=== PATIENT | male | born 1955 | race African-American/Black ===

== ENCOUNTER 2017-06-05 11:10 | Inpatient (IN) | payer OTHER ==
[~2017-06-05] VITALS: Ht 185.4 cm; Wt 117.0 kg
[2017-06-05] MEDS ORDERED: MORPHINE SULFATE 4 MG/ML, 1ML ONE (11:21)
[2017-06-05] MEDS ORDERED: ONDANSETRON 2MG/ML, 2ML ONE (11:21)
[2017-06-05] MEDS ORDERED: SODIUM CHLORIDE FLUSH 10ML SYR IVF ONE (11:30)
[2017-06-05] MEDS ORDERED: MORPHINE SULFATE 4 MG/ML, 1ML IVPush PRN (11:30)
[2017-06-05] MEDS ORDERED: SODIUM CHLORIDE 0.9% 1,000ML IVBOLUS ONE (11:30)
[2017-06-05] MEDS ORDERED: ONDANSETRON 2MG/ML, 2ML IVPush ONE (11:30)
[2017-06-05] MEDS ORDERED: ROSU20TA PO (12:10)
[2017-06-05] MEDS ORDERED: ASPI-621 PO (12:10)
[2017-06-05] MEDS ORDERED: VALS1TAB19 PO (12:10)
[2017-06-05] MEDS ORDERED: CYAN100063 PO (12:10)
[2017-06-05] MEDS ORDERED: AMLO2.5T2 PO (12:10)
[2017-06-05] MEDS ORDERED: CHOL500014 PO (12:10)
[2017-06-05] MEDS ORDERED: ALLO100T30 PO (12:10)
[2017-06-05 12:19] LABS: ASPARTATE AMINO TRANSFERASE 19 U/L (15-37); BLOOD UREA NITROGEN 21 mg/dL (7-18)
[2017-06-05 12:27] LABS: IS PT STATUS REG ER OR PRE ER? YES
[2017-06-05] MEDS ORDERED: LORazepam 1MG TABLET ONE (13:17)
[2017-06-05] MEDS ORDERED: HYDROcodone/APAP 5/325 TABLET PO PRN (13:30)
[2017-06-05] MEDS ORDERED: LORazepam 1MG TABLET PO PRN (13:30)
[2017-06-05] MEDS ORDERED: BISACODYL 10 MG SUPP PR PRN (13:30)
[2017-06-05] MEDS ORDERED: ONDANSETRON 2MG/ML, 2ML IVPush PRN (13:30)
[2017-06-05] MEDS ORDERED: POLYETHYLENE GLYCOL 17 GM PACKET PO PRN (13:30)
[2017-06-05] MEDS ORDERED: DOCUSATE 100 MG CAPSULE PO PRN (13:30)
[2017-06-05] MEDS ORDERED: LABETALOL 5MG/ML, 20ML IVPush PRN (13:30)
[2017-06-05] MEDS ORDERED: HYDROmorphone 2 MG/ML, 1ML IVPush PRN (13:30)
[2017-06-05] MEDS ORDERED: ACETAMINOPHEN 325 MG TABLET PO PRN (13:30)
[2017-06-05] MEDS ORDERED: PHARMACY MAY ADJ FOR RENAL FX MC PRN ×2 (13:30→14:00)
[2017-06-05 14:13] LABS: IS PT STATUS REG ER OR PRE ER? YES
[2017-06-05] MEDS: SODIUM CHLORIDE 0.9% 1,000 ML IV SCH ×2 (14:38→22:39)
[2017-06-05] MEDS ORDERED: ENOXAPARIN 40 MG/0.4 ML SQ SCH (15:00)
[2017-06-05] MEDS: METOPROLOL TARTRATE 25 MG TABLET PO SCH (17:18)
[2017-06-05 19:33] VITALS: BP 113/76
[2017-06-05 19:42] LABS: IS PT STATUS REG ER OR PRE ER? NO
[2017-06-05] MEDS ORDERED: (Rosuvastatin Calcium** (Crestor**) 20 MG) PO SCH (21:00)
[2017-06-06 00:56] VITALS: BP 96/61
[2017-06-06 05:08] LABS: ASPARTATE AMINO TRANSFERASE 17 U/L (15-37); BLOOD UREA NITROGEN 17 mg/dL (7-18)
[2017-06-06 05:54] VITALS: BP 110/75
[2017-06-06] MEDS: SODIUM CHLORIDE 0.9% 1,000 ML IV SCH ×2 (05:55→12:50)
[2017-06-06] MEDS: METOPROLOL TARTRATE 25 MG TABLET PO SCH (05:56)
[2017-06-06 08:04] VITALS: BP 117/80
[2017-06-06] MEDS ORDERED: ALLOPURINOL 300 MG TABLET PO SCH (09:00)
[2017-06-06] MEDS ORDERED: HYDROCHLOROTHIAZIDE PO SCH (09:00)
[2017-06-06] MEDS ORDERED: VALSARTAN PO SCH (09:00)
[2017-06-06] MEDS ORDERED: ASPIRIN 81 MG TABLET EC PO SCH (09:00)
[2017-06-06] MEDS ORDERED: CYANOCOBALAMIN 3000 MCG PO SCH (09:00)
[2017-06-06] MEDS ORDERED: CHOLECALCIFEROL 5000 UNIT PO SCH (09:00)
[2017-06-06] MEDS ORDERED: AMLODIPINE 2.5 MG TABLET PO SCH (09:00)
[2017-06-06] MEDS ORDERED: ALPR0.5T PO (12:57)
[2017-06-06] MEDS ORDERED: METO25TA35 PO (12:57)
[2017-06-06] MEDS ORDERED: NITR0.4T8 SL (12:57)
== END 2017-06-06 14:35 | disposition home or self-care (01) | DRG 311 ==
LOC: ED 12:11 → EDIP 12:12 → ED 12:20 → SUATTDRO 12:28 → 5SO 14:13
PROVIDERS: ADMIT Internal Medicine; ATTEND Internal Medicine
DX: I20.9 Angina pectoris, unspecified (principal); N17.9 Acute kidney failure, unspecified; E78.5 Hyperlipidemia, unspecified; M10.9 Gout, unspecified; F41.1 Generalized anxiety disorder; I12.9 Hypertensive chronic kidney disease with stage 1 through stage 4 chronic kidney disease, or unspecified chronic kidney disease; F17.210 Nicotine dependence, cigarettes, uncomplicated; N18.3 Chronic kidney disease, stage 3 (moderate); Z80.42 Family history of malignant neoplasm of prostate; Z83.3 Family history of diabetes mellitus; Z79.82 Long term (current) use of aspirin
CPT/HCPCS: 36415; 71010; 76770; 78452; 80053; 80061; 81003; 82436; 82570; 83036; 83605; 83735; 83880; 84100; 84133; 84300; 84443; 84484; 85025; 85379; 93005; 93017; 93306; 96361; 96374; 96375; J1650; J2405; A9502; C9898; J7030

== ENCOUNTER 2017-06-17 05:53 | Day surgery (SDC) | payer OTHER ==
[2017-06-14 09:48] VITALS: BP 144/88
[2017-06-14 10:34] LABS: ASPARTATE AMINO TRANSFERASE 18 U/L (15-37); BLOOD UREA NITROGEN 21 mg/dL (7-18)
[~2017-06-17] VITALS: Ht 185.4 cm; Wt 112.2 kg
[~2017-06-17 05:53] MED LIST: ALLO100T30 PO; ALLO300T PO; ALPR0.5T PO; ALPR0.5T6 PO; AMLO2.5T2 PO; ASPI-621 PO; CHOL500014 PO; CYAN100063 PO; METO25TA35 PO; NITR0.4T8 SL; ROSU20TA PO; VALS1TAB19 PO
[2017-06-17] MEDS ORDERED: SODIUM CHLORIDE 0.9% 1,000 ML IV ONE (06:11)
[2017-06-17] MEDS ORDERED: LIDOCAINE 2%, 20ML ONE (06:24)
[2017-06-17] MEDS ORDERED: BIVALIRUDIN 250 MG ONE (06:24)
[2017-06-17] MEDS ORDERED: HEPARIN 1,000 UNITS/ML, 10ML ONE (06:24)
[2017-06-17] MEDS ORDERED: MIDAZOLAM 1 MG/ML, 5ML ONE (06:24)
[2017-06-17] MEDS ORDERED: TICAGRELOR 90 MG TABLET ONE (06:24)
[2017-06-17] MEDS ORDERED: VERAPAMIL 2.5 MG/ML, 2ML ONE (06:24)
[2017-06-17] MEDS ORDERED: FENTANYL PF 100 MCG/2ML ONE (06:24)
[2017-06-17] MEDS ORDERED: SODIUM CHLORIDE 0.9% 1,000 ML IV SCH (08:04)
== END 2017-06-17 11:36 ==
LOC: CACL 05:53
PROVIDERS: ATTEND Internal Medicine Cardiovascular Disease
DX: I20.0 Unstable angina (principal); I10 Essential (primary) hypertension; E78.5 Hyperlipidemia, unspecified; M10.9 Gout, unspecified; F17.200 Nicotine dependence, unspecified, uncomplicated; Z98.890 Other specified postprocedural states
CPT/HCPCS: 36415; 80053; 85025; 85610; 85730; 93458; 99156; C1894; J1644; J2250; J3010; J3490; Q9967; J0583

== ENCOUNTER 2019-06-22 07:50 | Outpatient (CLI) | payer OTHER | END 2019-06-22 23:59 | disposition home or self-care (01) | LOC: STAR 07:50 | PROVIDERS: ATTEND Orthopaedic Surgery | DX: Z01.818 Encounter for other preprocedural examination (principal); M25.562 Pain in left knee; M17.12 Unilateral primary osteoarthritis, left knee; I10 Essential (primary) hypertension | CPT/HCPCS: 36415; 80053; 85025; 87081; 93005 ==

== ENCOUNTER 2019-06-22 08:40 | Outpatient (CLI) | payer OTHER | END 2019-06-22 23:59 | disposition home or self-care (01) | LOC: RAD 08:40 | PROVIDERS: ATTEND Family Medicine | DX: E78.5 Hyperlipidemia, unspecified (principal); I12.9 Hypertensive chronic kidney disease with stage 1 through stage 4 chronic kidney disease, or unspecified chronic kidney disease; M10.9 Gout, unspecified; R07.89 Other chest pain | CPT/HCPCS: 36415; 71046; 80061; 84402; 84403; 84550 ==